=== PATIENT | female | born 1965 | race Caucasian/White ===

== ENCOUNTER → 2016-07-15 | Outpatient (CLI) | payer BC, OTHER ==
--- NOTE | 2016-07-16 11:34 | MM ---
Reason for exam: screening (asymptomatic). Last mammogram was performed 2 years and 6 months ago. History: Took hormonal contraceptives for 2 years. Physical Findings: A clinical breast exam by your physician is recommended on an annual basis and results should be correlated with mammographic findings. MG Screening Mammo w CAD Bilateral CC and MLO view(s) were taken. Prior study comparison: January 11, 2014, bilateral MG diagnostic mammo w CAD [facility]. The breast tissue is heterogeneously dense. This may lower the sensitivity of mammography. There is no discrete abnormality. ASSESSMENT: Negative, BI-RAD 1 RECOMMENDATION: Routine screening mammogram of both breasts in 1 year.
== END | disposition home or self-care (01) ==
LOC: RADMAMWWP 10:02
PROVIDERS: ATTEND Family Medicine
DX: Z12.31 Encounter for screening mammogram for malignant neoplasm of breast (principal)

== ENCOUNTER 2017-03-25 22:07 | Emergency (ER) | payer OTHER ==
[2017-03-25 22:19] VITALS: BP 120/59; PULSE 84; RESP 18; TEMP 97.9
--- NOTE | 2017-03-25 22:27 | ED ---
General Adult HPI - General Chief complaint: Wound/Laceration Stated complaint: Finger Injury Time Seen by Provider: 03/25/17 22:15 Source: patient, RN notes reviewed Mode of arrival: ambulatory Limitations: no limitations - History of Present Illness Initial comments: Patient 51-year-old female who presents emergency room today with chief complaint of injury to the right middle finger. Patient does admit that she was grabbing her purse out of her trunk when she actually caught her finger closed in it. States she opened right away. She does admit to a small laceration over the volar aspect just distal to the DIP joint. She has mid to pain locally to the DIP joint distally of the right middle finger. She denies any other complaints or symptoms. She states she is unsure of her tetanus status but states she is planning follow-up the physical does not want her tetanus updated here. Patient denies any recent fever, chills, shortness of breath, chest pain, back pain, abdominal pain, nausea or vomiting, numbness or tingling, dysuria or hematuria, constipation or diarrhea, headaches or visual changes, or any other complaints. - Related Data Allergies Allergy/AdvReac Type Severity Reaction Status Date / Time No Known Allergies Allergy Verified 03/25/17 22:16 Review of Systems ROS Statement: Those systems with pertinent positive or pertinent negative responses have been documented in the HPI. ROS Other: All systems not noted in ROS Statement are negative. Past Medical History Past Medical History: No Reported History History of Any Multi-Drug Resistant Organisms: None Reported Past Surgical History: Section, Orthopedic Surgery Past Psychological History: No Psychological Hx Reported Smoking Status: Never smoker Past Alcohol Use History: Rare Past Drug Use History: None Reported General Exam - General Exam Comments Initial Comments: General: The patient is awake and alert, in no distress, and does not appear acutely ill. Neck: The neck is supple, there is no tenderness or JVD. Cardiovascular: There is a regular rate and rhythm. No murmur, rub or gallop is appreciated. Respiratory: Lungs are clear to auscultation, respirations are non-labored, breath sounds are equal. No wheezes, stridor, rales, or rhonchi. Musculoskeletal: Patient does have small laceration over the volar aspect of the right middle finger just distal to PIP joint. There is no active bleeding. Wound is superficial. She shows good range of motion all areas. Does have some mild tenderness from the DIP aspect distally of the right middle finger. No other bony tenderness on exam. Sensations intact pulses equal bilateral 2+. Strength 5/5. Neurological: A&O x 3. CN II-XII intact, There are no obvious motor or sensory deficits. Coordination appears grossly intact. Speech is normal. Skin: Skin is warm and dry and no rashes or lesions are noted. Psychiatric: Normal mood and affect. Limitations: no limitations Course Vital Signs 03/25/17 22:16 Temperature 97.9 F Pulse Rate 84 Respiratory 18 Rate Blood Pressure 120/59 O2 Sat by Pulse 100 Oximetry Medical Decision Making - Medical Decision Making Patient's x-rays have been reviewed and shows no acute fracture dislocation. Patient's laceration was cleaned here in the emergency room. Options of a glue or suture were discussed with the patient. She states she does not feel is necessary and a bandage was placed over top. Patient's advised watch for signs of infection. Advised follow-up with orthopedics over the next 3-5 days. Advised return here to emergency room if any symptoms increase or worsen or for any other concerns. Disposition Clinical Impression: Laceration, Contusion of right middle finger Disposition: HOME SELF-CARE Condition: Good Instructions: Laceration (ED) Additional Instructions: Please follow-up with orthopedics over the next 3-5 days. Please use finger splint for comfort as needed. Please continue to ice elevate and use ibuprofen for pain. Please return to emergency concerns. Referrals: Jacob Cruz DO [Primary Care Provider] - 1-2 days Santos Bentley MD [Medical Doctor] - 1-2 days Time of Disposition: 22:43
--- NOTE | 2017-03-26 11:55 | XR ---
EXAMINATION TYPE: XR finger RT DATE OF EXAM: 03/25/2017 COMPARISON: NONE HISTORY: Laceration TECHNIQUE: 3 views FINDINGS: I see no fracture nor dislocation. There is no sign of a radiopaque foreign body. Joint spa issa are normal. IMPRESSION: Negative right middle finger exam.
== END 2017-03-25 22:57 | disposition home or self-care (01) ==
LOC: EC 22:07
DX: S61.212A Laceration without foreign body of right middle finger without damage to nail, initial encounter (principal); W23.0XXA Caught, crushed, jammed, or pinched between moving objects, initial encounter; Y93.89 Activity, other specified
CPT/HCPCS: 99283

== ENCOUNTER → 2017-10-12 | Outpatient (CLI) | payer OTHER ==
--- NOTE | 2017-10-12 16:27 | BD ---
EXAMINATION TYPE: MG DEXA axial skeleton. DATE OF EXAM: 10/12/2017 COMPARISON: NONE CLINICAL HISTORY: female disorders of bone mineral density. Height: 5 FT 7 1/2 IN Weight: 176 FRAX RISK QUESTIONS: History of Fracture in Adulthood: YES RISK FACTORS HISTORY OF: Active: YES Postmenopausal woman: AGE 47 MEDICATIONS: Additional History: VITAMINS EXAM MEASUREMENTS: Bone mineral densitometry was performed using the [employer] System. Bone mineral density as measured about the Lumbar spine is: ----- L1-L4(G/cm2): 1.055 T Score Values are as follows: ----- L2: -1.8 ----- L3: -0.9 ----- L4: -0.9 ----- L1-L4: -1.0 BASELINE Bone mineral density about the R hip (g/cm2): 0.820 Bone mineral density about the L hip (g/cm2): 0.792 T Score values are as follows: -----R Neck: -1.6 -----L Neck: -1.8 -----R Total: -1.5 -----L Total: -1.3 BASELINE IMPRESSION: Osteopenia (T Score between -2.5 and -1). There is slightly increased risk of fracture and the patient may be considered for treatment. Re-Screen 2-5 years. NOTE: T-SCORE=SD OF THE YOUNG ADULT MEAN.
--- NOTE | 2017-10-13 11:16 | MM ---
Reason for exam: screening (asymptomatic). Last mammogram was performed 1 year and 3 months ago. History: Patient is postmenopausal. Took hormonal contraceptives for 2 years. Physical Findings: A clinical breast exam by your physician is recommended on an annual basis and results should be correlated with mammographic findings. MG Screening Mammo w CAD Bilateral CC and MLO view(s) were taken. Prior study comparison: July 15, 2016, bilateral MG screening mammo w CAD. January 11, 2014, bilateral MG diagnostic mammo w CAD [facility]. The breast tissue is heterogeneously dense. This may lower the sensitivity of mammography. No suspicious abnormality. No significant changes when compared with prior studies. ASSESSMENT: Negative, BI-RAD 1 RECOMMENDATION: Routine screening mammogram of both breasts in 1 year.
== END | disposition home or self-care (01) ==
LOC: RADMAMWWP 14:49
PROVIDERS: ATTEND Family Medicine
DX: Z12.31 Encounter for screening mammogram for malignant neoplasm of breast (principal); M85.80 Other specified disorders of bone density and structure, unspecified site
CPT/HCPCS: 77067; 77080

== ENCOUNTER → 2020-09-19 | Outpatient (CLI) | payer OTHER ==
--- NOTE | 2020-09-23 14:01 | MM ---
Reason for exam: screening (asymptomatic). Last mammogram was performed 2 years and 11 months ago. History: Patient is postmenopausal. Took hormonal contraceptives for 2 years. Physical Findings: A clinical breast exam by your physician is recommended on an annual basis and results should be correlated with mammographic findings. MG Screening Mammo w CAD Bilateral CC and MLO view(s) were taken. Prior study comparison: October 12, 2017, bilateral MG screening mammo w CAD. July 15, 2016, bilateral MG screening mammo w CAD. The breast tissue is heterogeneously dense. This may lower the sensitivity of mammography. No significant changes when compared with prior studies. ASSESSMENT: Negative, BI-RAD 1 RECOMMENDATION: Routine screening mammogram of both breasts in 1 year.
== END | disposition home or self-care (01) ==
LOC: RADMAMWWP 14:16
PROVIDERS: ATTEND Family Medicine
DX: Z12.31 Encounter for screening mammogram for malignant neoplasm of breast (principal); Z78.0 Asymptomatic menopausal state
CPT/HCPCS: 77067

== ENCOUNTER → 2020-12-18 | Outpatient (CLI) | payer OTHER ==
--- NOTE | 2020-12-19 07:33 | BD ---
EXAMINATION TYPE: Axial Bone Density DATE OF EXAM: 12/18/2020 COMPARISON: 10/12/2017 CLINICAL HISTORY: Osteoporosis screening Height: 67.5 IN Weight: 175 LBS RISK FACTORS HISTORY OF: Active: YES Postmenopausal woman: AGE 45 Take estrogen and/or progesterone medications: NOT NOW How long: TOOK CONTROL FOR 5 YEARS MEDICATIONS: Additional Medications: CALCIUM, ZINC, VIT D, VIT B12, COQ10, EXAM MEASUREMENTS: Bone mineral densitometry was performed using the [employer] System. Bone mineral density as measured about the Lumbar spine is: ----- L1-L4(G/cm2): 0.973 T Score Values are as follows: ----- L2: -2.5 ----- L3: -1.6 ----- L4: -1.2 ----- L1-L4: -1.7 Bone mineral density has: Decreased -6.7% since study of: 10/12/2017 Bone mineral density about the R hip (g/cm2): 0.791 Bone mineral density about the L hip (g/cm2): 0.786 T Score values are as follows: -----R Neck: -1.8 -----L Neck: -1.8 -----R Total: -1.6 -----L Total: -1.4 Bone mineral density has: Decreased -1.1% since study of: 10/12/2017 IMPRESSION: Osteopenia. NOTE: T-SCORE=SD OF THE YOUNG ADULT MEAN.
== END | disposition home or self-care (01) ==
LOC: RADBDWWP 10:49
PROVIDERS: ATTEND Family Medicine
DX: Z13.820 Encounter for screening for osteoporosis (principal); M85.89 Other specified disorders of bone density and structure, multiple sites; Z78.0 Asymptomatic menopausal state; Z79.3 Long term (current) use of hormonal contraceptives
CPT/HCPCS: 77080

== ENCOUNTER → 2023-02-25 | Outpatient (CLI) | payer OTHER ==
--- NOTE | 2023-02-25 18:23 | US ---
EXAMINATION TYPE: US groin LT DATE OF EXAM: 02/25/2023 COMPARISON: NONE CLINICAL INDICATION: Female, 57 years old with history of R59.0 ENLARGED LYMPHNODES; Patients states feeling pea side palpables left groin since chiropractor adjustment 1 year ago. TECHNIQUE: Multiple images taken of patients area of concern. FINDINGS: Area of concern scanned. Lymph nodes seen with no cortical thickening. Largest measured with short axis = 1.4 cm and cortical thickness= 1.5 mm. IMPRESSION: Left groin lymph node with cortical thickening in the left groin. Findings are rather non specific and could be secondary to underlying left lower extremity edema versus infection. Consider t issue sampling.
== END | disposition home or self-care (01) ==
LOC: RADUSWWP 16:10
PROVIDERS: ATTEND Internal Medicine
DX: R59.0 Localized enlarged lymph nodes (principal)

== ENCOUNTER → 2023-12-01 | Outpatient (CLI) | payer BC ==
--- NOTE | 2023-12-05 17:30 | MM ---
Reason for Exam: Screening (asymptomatic). Last mammogram was performed 1 year(s) and 4 month(s) ago. Patient History: Menarche at age 17. First Full-Term at age 20. Postmenopausal. Patient has history of breast feeding. Patient used Hormonal Contraceptives for 2 years. Risk Values: Katerin 5 year model risk: 1.1%. NCI Lifetime model risk: 6.2%. Prior Study Comparison: 10/12/2017 Bilateral Screening Mammogram, [facility]. 09/19/2020 Bilateral Screening Mammogram, [facility]. 07/13/2022 Bilateral MG screening mammo w CAD, [facility]. Tissue Density: There are scattered areas of fibroglandular density. Findings: Analyzed By CAD. Unchanged asymmetric density lateral right breast. Chronic nodularity medial left breast. There is no suspicious group of microcalcifications or new suspicious mass in either breast. Overall Assessment: Benign, BI-RAD 2 Management: Screening Mammogram of both breasts in 1 year. . Patient should continue monthly self-breast exams. A clinical breast exam by your physician is recommended on an annual basis. This exam should not preclude additional follow-up of suspicious palpable abnormalities. Note on Katerin scores and lifetime risk: 1. A Katerin score greater than 3% is considered moderate risk. If this is the case, consider specialist referral to assess eligibility for a risk reducing agent. 2. If overall lifetime risk for the development of breast cancer is 20% or higher, the patient may qualify for future screening with alternating mammogram and breast MRI. Electronically signed and approved by: Genie Beal M.D. Radiologist
== END | disposition home or self-care (01) ==
LOC: RADMAMWWP 15:02
PROVIDERS: ATTEND Internal Medicine
DX: Z12.31 Encounter for screening mammogram for malignant neoplasm of breast (principal); Z78.0 Asymptomatic menopausal state; Z92.0 Personal history of contraception
CPT/HCPCS: 77067

== ENCOUNTER → 2024-01-31 | Outpatient (CLI) | payer BC, OTHER ==
--- NOTE | 2024-02-14 10:21 | MR ---
MRI left thigh and femur with and without contrast. HISTORY: Bone lesion left femur identified on prior MRI. COMPARISON: No prior study available for comparison. TECHNIQUE: Multiecho multiplanar images of the left thigh was obtained with and without contrast. FINDINGS: There is a 22 x 10 mm well circumscribed intramedullary mass in the proximal third of the diaphysis o f the left femur. It is isointense to muscle on T1-weighted images and diffusely high intensity on th e T2 weighted images. There is suggestion of thinning of the adjacent cortex and possible remodeling of the inner margin of the cortex but no cortical destruction. There is no periosteal reaction. Ther e is no adjacent edema in the overlying soft tissues or within the bone marrow. Following contrast administration, there is no enhancement of the mass. No soft tissue masses or pathological enhancement seen within the soft tissues of the left thigh. IMPRESSION: 22 x 10 mm mass in the proximal diaphysis of the left femur which has benign characteristics on all M RI sequences including postcontrast images. Confirmation of a benign etiology should be made with CT examination of the left femur.
== END | disposition home or self-care (01) ==
LOC: RADMRIMAIN 20:00
PROVIDERS: ATTEND Internal Medicine
DX: M89.8X5 Other specified disorders of bone, thigh (principal)